=== PATIENT | male | born 1955 | race Two or more races ===

== ENCOUNTER 2023-12-06 20:59 | Emergency (ER) | payer OTHER ==
[~2023-12-06] VITALS: Ht 172.7 cm; Wt 87.0 kg
[2023-12-06 21:16] VITALS: O2SAT 95
[2023-12-06 22:16] LABS: BASOPHILS % 0.6 % (0.0-2.0); EOSINOPHILS % 4.2 % (0.0-5.0); MEAN CORPUSCULAR HEMOGLOBIN 21.7 pg (28.0-32.0); MEAN CORPUSCULAR HGB CONC 31.4 g/dL (31.0-37.0); MEAN CORPUSCULAR VOLUME 69.2 fL (80.0-94.0); MEAN PLATELET VOLUME 8.5 fl (7.4-10.4); MONOCYTES % 6.5 % (2.0-8.0); NEUTROPHILS % 50.7 % (40.0-76.0); PLATELET 218 x1000/uL (130-400); RED BLOOD CELL COUNT 5.05 mill/uL (4.7-6.1); RED CELL DISTRIBUTION WIDTH 23.1 % (11.6-14.6); WHITE BLOOD COUNT 6.5 x1000/uL (4.5-11.0)
[2023-12-06 22:17] LABS: ADD RBC MORPHOLOGY YES; DIFFERENTIAL COMMENT 1
[2023-12-06] MEDS: MORPHINE SULFATE 4 MG/ML CPJ (NOT FOR IM USE) IV STA (22:24)
[2023-12-06] MEDS: SODIUM CHLORIDE 0.9% 1,000 ML IV ONE (22:25)
[2023-12-06] MEDS: ONDANSETRON HCL 4MG/2ML INJ IV STA (22:25)
[2023-12-06 22:26] LABS: HYPOCHROMASIA 2+; MICROCYTOSIS 3+; PLATELET ESTIMATE NORMAL
[2023-12-06 22:27] LABS: ANISOCYTOSIS 2+
[2023-12-06 22:31] LABS: ALANINE AMINOTRANSFERASE 10 IU/L (10-49); ASPARTATE AMINOTRANSFERASE 14 IU/L (<34); BILIRUBIN TOTAL < 0.2 mg/dL (0.1-1.0); CALCIUM 9.1 mg/dL (8.7-10.4); CARBON DIOXIDE 32 mEq/L (21-32); CHLORIDE 109 mEq/L (98-107); CREATININE 1.1 mg/dL (0.6-1.3); GLUCOSE 130 mg/dL (70-105); PROTEIN TOTAL 6.5 g/dL (6.0-8.3); SODIUM 144 mEq/L (136-145); TROPONIN I HIGH SENSITIVITY 5 ng/L (3.0-53); UREA NITROGEN BLOOD 8 mg/dL (9-23)
[2023-12-06 22:33] LABS: D-DIMER 0.48 mg/L FEU (<0.50); PARTIAL THROMBOPLASTIN TIME 27.6 sec (23.4-31.0); PROTHROMBIN TIME 11.6 sec (9.6-11.0)
[2023-12-07] MEDS ORDERED: IOHEXOL-350 100 ML BOTTLE ONE (00:38)
[2023-12-07 01:59] LABS: TROPONIN I HIGH SENSITIVITY 5 ng/L (3.0-53)
[2023-12-07 03:06] VITALS: BP 148/79; PULSE 57; RESP 18; TEMP 97.8
== END 2023-12-07 03:40 | disposition short-term general hospital (02) ==
LOC: ER 20:59
DX: R07.9 Chest pain, unspecified (principal); R10.13 Epigastric pain; F32.A Depression, unspecified; E78.00 Pure hypercholesterolemia, unspecified; I10 Essential (primary) hypertension
CPT/HCPCS: 80053; 83880; 83690; 85025; 85379; 85610; 85730; 84484 ×2; 36415; 74174; 71045; 71275; 93005; 96361; 96374; 96375; 99285; J2405; J2270; J7030; Z7610; Q9967